=== PATIENT | male | born 1990 | race African-American/Black ===

== ENCOUNTER 2023-03-04 22:40 | Inpatient (IN) | payer SELFPAY ==
[~2023-03-04] VITALS: Ht 175.3 cm; Wt 84.9 kg
[2023-03-04] MEDS ORDERED: LORAZEPAM 2MG/ML CPJ IV ONE (23:15)
[2023-03-04] MEDS ORDERED: LORAZEPAM 4MG/ML VIAL IV NR (23:15)
[2023-03-04] MEDS ORDERED: LEVETIRACETAM 1000MG PREMIX 100 ML IV ONE (23:15)
[2023-03-04] MEDS ORDERED: SODIUM CHLORIDE 0.9% 1,000 ML IV ONE (23:15)
[2023-03-05] MEDS ORDERED: CLONIDINE 0.1MG TABLET PO PRN (01:00)
[2023-03-05] MEDS ORDERED: IPRATROPIUM/ALBUTEROL 0.5-3(2.5)MG/3ML NEB HHN PRN (01:00)
[2023-03-05] MEDS ORDERED: HYDROCODONE/ACETAMINOPHEN 5/325MG TABLET PO PRN (01:00)
[2023-03-05] MEDS ORDERED: GUAIFENESIN 200MG/10ML SUGAR FREE UDC PO PRN (01:00)
[2023-03-05] MEDS ORDERED: DOCUSATE SODIUM 100MG CAPSULE PO PRN (01:00)
[2023-03-05] MEDS ORDERED: ONDANSETRON HCL 4MG/2ML INJ IV PRN (01:00)
[2023-03-05] MEDS ORDERED: ACETAMINOPHEN 325MG TABLET PO PRN ×2 (01:00)
[2023-03-05] MEDS ORDERED: MAGNESIUM/ALUMINUM HYDROXIDE/SIMETHICONE 30ML UDC PO PRN (01:00)
[2023-03-05 01:59] LABS: HEMATOCRIT. 43.6 % (42.0-52.0); HEMOGLOBIN. 14.3 g/dL (14.0-18.0); MEAN CORPUSCULAR HEMOGLOBIN 28.2 pg (28.0-32.0); MEAN CORPUSCULAR HGB CONC 32.8 g/dL (31.0-37.0); MEAN CORPUSCULAR VOLUME 85.9 fL (80.0-94.0); MEAN PLATELET VOLUME 9.6 fl (7.4-10.4); PLATELET 225 x1000/uL (130-400); RED BLOOD CELL COUNT 5.08 mill/uL (4.7-6.1); RED CELL DISTRIBUTION WIDTH 14.7 % (11.6-14.6); WHITE BLOOD COUNT 19.7 x1000/uL (4.5-11.0)
[2023-03-05 02:01] LABS: DIFFERENTIAL COMMENT 1
[2023-03-05 02:10] LABS: ALANINE AMINOTRANSFERASE 46 IU/L (10-49); ALBUMIN 4.1 g/dL (3.2-4.8); ASPARTATE AMINOTRANSFERASE 44 IU/L (<34); CALCIUM 8.8 mg/dL (8.7-10.4); CARBON DIOXIDE 21 mEq/L (21-32); CHLORIDE 111 mEq/L (98-107); CREATININE 1.8 mg/dL (0.6-1.3); GLUCOSE 99 mg/dL (70-105); POTASSIUM 4.7 mEq/L (3.5-5.1); PROTEIN TOTAL 6.8 g/dL (6.0-8.3); SODIUM 142 mEq/L (136-145); UREA NITROGEN BLOOD 12 mg/dL (9-23)
[2023-03-05] MEDS: SODIUM CHLORIDE 0.9% 1,000 ML IV SCH ×3 (02:16→23:37)
[2023-03-05 02:49] LABS: ETHANOL BLOOD < 10 mg/dL (<10)
[2023-03-05] MEDS ORDERED: LORAZEPAM 4MG/ML VIAL IV NR (03:00)
[2023-03-05 03:01] LABS: LACTIC ACID 2.3 mmol/L (0.4-2.0)
[2023-03-05] MEDS ORDERED: LIDOCAINE HCL 2% 5ML SYRINGE IV NR (08:45)
[2023-03-05] MEDS ORDERED: LEVETIRACETAM 500MG PREMIX 100 ML IV SCH (09:00)
[2023-03-05 09:58] VITALS: BP 113/65; PULSE 95; RESP 20; TEMP 97.8
[2023-03-05 12:00] VITALS: BP 120/66; PULSE 92; RESP 20; TEMP 97.4
[2023-03-05] MEDS: ENOXAPARIN 40MG/0.4ML SYR SUBCUT SCH ×2 (12:05→12:06)
[2023-03-05] MEDS: LEVETIRACETAM 500MG PREMIX 100 ML IV SCH ×2 (12:27→23:37)
[2023-03-05 14:16] LABS: PLATELET ESTIMATE NORMAL
[2023-03-05 16:00] VITALS: BP 126/64; PULSE 84; RESP 18; TEMP 98.1
[2023-03-05 18:00] VITALS: BP 126/64; PULSE 84; RESP 18; TEMP 98.1
[2023-03-05 20:00] VITALS: BP 121/71; PULSE 95; RESP 18; TEMP 98.4
[2023-03-05 20:08] LABS: CREATINE KINASE 2973 IU/L (46-171)
[2023-03-05] MEDS ORDERED: LORAZEPAM 2MG/ML CPJ IV PRN (20:15)
[2023-03-05] MEDS ORDERED: LORAZEPAM 2MG/ML CPJ IV ONE (20:15)
[2023-03-05] MEDS ORDERED: NALOXONE HCL 0.4MG/ML VIAL IV PRN (23:15)
[2023-03-06] VITALS: BP 111/66; PULSE 86; RESP 18; TEMP 98
[2023-03-06 04:00] VITALS: BP 122/68; PULSE 87; RESP 18; TEMP 98.1
[2023-03-06 08:00] VITALS: BP 124/70; PULSE 78; RESP 14; TEMP 98
[2023-03-06 08:13] LABS: BASOPHILS % 0.6 % (0.0-2.0); EOSINOPHILS % 1.1 % (0.0-5.0); HEMATOCRIT. 37.4 % (42.0-52.0); HEMOGLOBIN. 12.8 g/dL (14.0-18.0); LYMPHOCYTES % 12.2 % (20.0-50.0); MEAN CORPUSCULAR HEMOGLOBIN 28.9 pg (28.0-32.0); MEAN CORPUSCULAR HGB CONC 34.2 g/dL (31.0-37.0); MEAN CORPUSCULAR VOLUME 84.5 fL (80.0-94.0); MEAN PLATELET VOLUME 10.2 fl (7.4-10.4); MONOCYTES % 8.5 % (2.0-8.0); NEUTROPHILS % 77.6 % (40.0-76.0); PLATELET 209 x1000/uL (130-400); RED BLOOD CELL COUNT 4.42 mill/uL (4.7-6.1); RED CELL DISTRIBUTION WIDTH 14.2 % (11.6-14.6); WHITE BLOOD COUNT 10.1 x1000/uL (4.5-11.0)
[2023-03-06] MEDS ORDERED: LEVETIRACETAM 500MG PREMIX 100 ML IV SCH (09:00)
[2023-03-06 09:36] LABS: ALANINE AMINOTRANSFERASE 46 IU/L (10-49); ALBUMIN 3.5 g/dL (3.2-4.8); ASPARTATE AMINOTRANSFERASE 119 IU/L (<34); BILIRUBIN TOTAL 1.4 mg/dL (0.1-1.0); CALCIUM 8.4 mg/dL (8.7-10.4); CARBON DIOXIDE 24 mEq/L (21-32); CHLORIDE 108 mEq/L (98-107); CHOLESTEROL 126 mg/dL (<200); GLUCOSE 76 mg/dL (70-105); HDL CHOLESTEROL 37 mg/dL (>55); LDL CHOLESTEROL 100 mg/dL (5-100); POTASSIUM 3.1 mEq/L (3.5-5.1); PROTEIN TOTAL 5.8 g/dL (6.0-8.3); SODIUM 141 mEq/L (136-145); T4 FREE 1.13 ng/dL (0.89-1.76); TRIGLYCERIDE 76 mg/dL (0-150); UREA NITROGEN BLOOD 8 mg/dL (9-23)
[2023-03-06] MEDS ORDERED: POTASSIUM CHLORIDE 20MEQ TABLET SR PO NR (11:30)
[2023-03-06 12:00] VITALS: BP 123/75; PULSE 71; RESP 14; TEMP 99
[2023-03-06 16:00] VITALS: BP 125/74; PULSE 72; RESP 14; TEMP 98.7
[2023-03-06] MEDS ORDERED: LIDOCAINE HCL 1% 30ML VIAL (10MG/ML) INFIL NR (16:50)
[2023-03-06] MEDS ORDERED: LACO100T2 PO (18:39)
[2023-03-06 18:50] VITALS: BP 120/70; PULSE 82; TEMP 98; O2SAT 99
[2023-03-06] MEDS ORDERED: LORAZEPAM 4MG/ML VIAL IV PRN (20:30)
== END 2023-03-06 19:25 | disposition home or self-care (01) | DRG 53 ==
LOC: ER 22:40 → 8WST 03-05 02:30 → EDBEDREQ 03-05 02:36
PROVIDERS: ADMIT Internal Medicine; ATTEND Internal Medicine
DX: G40.901 Epilepsy, unspecified, not intractable, with status epilepticus (principal); E87.6 Hypokalemia; S01.412A Laceration without foreign body of left cheek and temporomandibular area, initial encounter; S89.92XA Unspecified injury of left lower leg, initial encounter; F39 Unspecified mood [affective] disorder; Z86.61 Personal history of infections of the central nervous system; W18.39XA Other fall on same level, initial encounter; Y93.89 Activity, other specified; Y92.89 Other specified places as the place of occurrence of the external cause; Y99.8 Other external cause status
CPT/HCPCS: 36415; 71045; 73560; 80053; 80061; 80320; 82550; 83605; 84145; 84439; 84443; 85025; 99291; J1650; J1953; J2060; J3490; J7030; G0480